=== PATIENT | female | born 1950 | race Two or more races ===

== ENCOUNTER 2023-09-18 19:46 | Emergency (ER) | payer MEDICARE, BC ==
[~2023-09-18] VITALS: Ht 167.6 cm; Wt 70.0 kg
[2023-09-18 20:19] VITALS: O2SAT 98
[2023-09-18] MEDS: SODIUM CHLORIDE 0.9% 1,000 ML IV ONE (21:45)
[2023-09-18 21:55] LABS: BASOPHILS % 0.7 % (0.0-2.0); HEMOGLOBIN. 13.6 g/dL (12.0-16.0); LYMPHOCYTES % 11.8 % (20.0-50.0); MEAN CORPUSCULAR HEMOGLOBIN 29.7 pg (28.0-32.0); MEAN CORPUSCULAR VOLUME 87.5 fL (81.0-99.0); MEAN PLATELET VOLUME 7.8 fl (7.4-10.4); MONOCYTES % 5.5 % (2.0-8.0); PLATELET 365 x1000/uL (130-400); RED BLOOD CELL COUNT 4.57 mill/uL (4.2-5.4); RED CELL DISTRIBUTION WIDTH 14.6 % (11.6-14.6); WHITE BLOOD COUNT 5.8 x1000/uL (4.5-11.0)
[2023-09-18 21:57] LABS: PROTHROMBIN TIME 10.9 sec (9.6-11.0)
[2023-09-18] MEDS: MORPHINE SULFATE 4 MG/ML INJ (FOR IV/IM USE) IV ONE ×2 (21:58→23:07)
[2023-09-18] MEDS: ONDANSETRON HCL 4MG/2ML INJ IV STA (21:58)
[2023-09-18] MEDS: PANTOPRAZOLE SODIUM 40 MG/VIAL IV ONE (21:58)
[2023-09-18 21:59] LABS: CHLORIDE 96 mEq/L (98-107); SODIUM 129 mEq/L (136-145)
[2023-09-18 22:00] LABS: CALCIUM 10.4 mg/dL (8.7-10.4); CARBON DIOXIDE 20 mEq/L (21-32)
[2023-09-18 22:05] LABS: CREATININE 0.7 mg/dL (0.6-1.0); GLUCOSE 143 mg/dL (70-105); UREA NITROGEN BLOOD 8 mg/dL (9-23)
[2023-09-18 22:07] LABS: ALANINE AMINOTRANSFERASE 38 IU/L (10-49); ALBUMIN 4.8 g/dL (3.2-4.8); ASPARTATE AMINOTRANSFERASE 33 IU/L (<34); BILIRUBIN DIRECT 0.3 mg/dL (<=3.0); BILIRUBIN TOTAL 0.9 mg/dL (0.1-1.0); PROTEIN TOTAL 7.3 g/dL (6.0-8.3); TROPONIN I HIGH SENSITIVITY < 4 ng/L (3.0-34)
[2023-09-18] MEDS: LORAZEPAM 2MG/ML INJ IV ONE (22:35)
[2023-09-18 22:41] LABS: ETHANOL BLOOD < 10 mg/dL (<10)
[2023-09-19] MEDS: POTASSIUM CHLORIDE 20MEQ TABLET SR PO NR (02:28)
[2023-09-19] MEDS: TRAZODONE HCL 50MG TABLET PO NR (02:28)
[2023-09-19] MEDS: IOHEXOL-300 100 ML BOTTLE ONE (03:42)
[2023-09-19] MEDS ORDERED: ACETAMINOPHEN 325MG TABLET PO PRN (08:15)
[2023-09-19] MEDS ORDERED: ONDANSETRON HCL 4MG/2ML INJ IV PRN (08:15)
[2023-09-19 09:08] VITALS: BP 137/62; PULSE 78; RESP 16; TEMP 97.9
[2023-09-19] MEDS ORDERED: CHLORDIAZEPOXIDE 25MG CAPSULE PO SCH (14:00)
[2023-09-19] MEDS ORDERED: FAMOTIDINE 20MG TABLET PO SCH (21:00)
== END 2023-09-19 09:11 | disposition left against medical advice (07) ==
LOC: ER 19:46 → 5WST 09-19 01:50 → UNDOADMIN 09-19 01:50
DX: F10.239 Alcohol dependence with withdrawal, unspecified (principal); I10 Essential (primary) hypertension; I49.3 Ventricular premature depolarization; Z96.659 Presence of unspecified artificial knee joint; Z98.84 Bariatric surgery status; Y90.9 Presence of alcohol in blood, level not specified
CPT/HCPCS: 80076; 80048; 80320; 83690; 85025; 85610; 84484; 36415; 93005; 96365; 96375; 96376; 99285; 74177; J2060; J2405; C9113; J2270; J7030; Q9967; G0480